=== PATIENT | male | born 1985 | race Caucasian/White ===

== ENCOUNTER 2020-09-24 09:58 | Day surgery (SDC) | payer BC ==
[2020-09-23 11:32] VITALS: BMI 34.4
[2020-09-24] MEDS ORDERED: Fentanyl 250 MCG/5 ML VIAL ONE (11:06)
[2020-09-24] MEDS ORDERED: Thrombin 5000 UNITS/5 ML VIAL ONE (11:36)
[2020-09-24] MEDS ORDERED: Midazolam HCl 2 mg/2 ml Vial ONE (11:39)
[2020-09-24] MEDS ORDERED: Dexamethasone 20 MG/5 ML VIAL ONE (12:40)
[2020-09-24] MEDS ORDERED: PHENYLEPHRINE-NS 100 MCG/ML 10 ML SYRINGE ONE (12:40)
[2020-09-24] MEDS ORDERED: Rocuronium Bromide 10 MG/ML (10ML VIAL) ONE (12:40)
[2020-09-24] MEDS ORDERED: Lidocaine 1% PF 5 ML VIAL ONE (12:40)
[2020-09-24] MEDS ORDERED: PROPOFOL 200 MG/20 ML VIAL ONE (12:40)
[2020-09-24] MEDS ORDERED: Ondansetron PF 4 MG/2 ML Vial ONE (12:40)
[2020-09-24] MEDS ORDERED: traMADol HCl 50 MG TAB PO PRN (13:06)
[2020-09-24] MEDS ORDERED: Milk Of Magnesia 30 ML UDCUP PO PRN (13:06)
[2020-09-24] MEDS ORDERED: Bisacodyl 10 MG SUPP PR PRN (13:06)
[2020-09-24] MEDS ORDERED: Morphine 2 MG/ML VIAL SLOW IVP PRN (13:06)
[2020-09-24] MEDS ORDERED: Mag-Al 1200 mg/1200 mg/30 ML UDCUP PO PRN (13:06)
[2020-09-24] MEDS ORDERED: Acetaminophen 325 MG TAB PO PRN (13:06)
[2020-09-24] MEDS ORDERED: tiZANidine HCl 4 MG TAB PO PRN (13:06)
[2020-09-24] MEDS ORDERED: Ondansetron PF 4 MG/2 ML Vial IVP PRN (13:06)
[2020-09-24] MEDS ORDERED: Acetaminophen/Codeine 30-300mg Tablet PO PRN (13:06)
[2020-09-24] MEDS ORDERED: SUGAMMADEX SODIUM 200 MG/2 ML VIAL ONE (13:54)
[2020-09-24] MEDS ORDERED: HYDROmorphone 2 MG/ML VIAL ONE (14:09)
[2020-09-24] MEDS ORDERED: Ondansetron HCl/PF 4 MG/2 ML Vial IVP PRN (14:41)
[2020-09-24] MEDS ORDERED: HYDROmorphone 2 MG/ML VIAL SLOW IVP PRN (14:41)
[2020-09-24] MEDS ORDERED: Promethazine HCl 25 MG/ML VIAL SLOW IVP PRN (14:41)
[2020-09-24] MEDS ORDERED: Promethazine HCl 25 MG/ML VIAL IM PRN (14:41)
[2020-09-24] MEDS ORDERED: Fentanyl 100 MCG/2 ML VIAL ONE ×2 (14:54→15:11)
[2020-09-24] MEDS ORDERED: Morphine 4 MG/ML VIAL ONE (16:06)
[2020-09-24] MEDS: Sodium Chloride 0.9% 1,000 ML IV SCH (17:46)
[2020-09-24] MEDS: HYDROcodone/Acetaminophen 7.5/325 mg Tablet PO PRN (17:54)
[2020-09-24] MEDS: CEFAZOLIN 2 GM in Premix Bag 1 BAG IVPB SCH (17:59)
[2020-09-24] MEDS: Gabapentin 400 MG CAP PO SCH (21:00)
[2020-09-25] MEDS: HYDROcodone/Acetaminophen 7.5/325 mg Tablet PO PRN ×2 (01:11→08:25)
[2020-09-25] MEDS: CEFAZOLIN 2 GM in Premix Bag 1 BAG IVPB SCH (03:33)
[2020-09-25] MEDS: Sodium Chloride 0.9% 1,000 ML IV SCH (03:34)
[2020-09-25] MEDS: Gabapentin 400 MG CAP PO SCH (08:27)
--- NOTE | 2020-09-25 09:52 | PRG ---
DATE OF SERVICE: Mr. Moon is postoperative day 1 from left L5-S1 hemilaminotomy, foraminotomy, and diskectomy with also left L5-S1 trans-facet diskectomy. He is doing well with resolution in his low back and left leg pain. He states that the paresthesias in his left foot have also improved. He is very pleased with his outcome. He has met criteria for discharge and is neurologically intact. We went over do's and don'ts in the postoperative period and we will plan for discharge. Job ID: [id number]
--- NOTE | 2020-09-25 10:09 | OP ---
DATE OF PROCEDURE: 09/24/2020 PRINT PRODUCTION MANAGER: Ursula Schreiber PA-C PREPROCEDURE DIAGNOSIS: Left L5-S1 paracentral and lateral disk extrusion with compression of traversing and exiting left S1 and left L5 nerve roots respectively. POSTPROCEDURE DIAGNOSIS: Left L5-S1 paracentral and lateral disk extrusion with compression of traversing and exiting left S1 and left L5 nerve roots respectively. PROCEDURES PERFORMED: 1. Left L5-S1 hemilaminotomy, foraminotomy, and diskectomy. 2. Left L5-S1 trans-facet diskectomy for decompression of the exiting left L5 nerve root. 3. Use of operative microscope for microdissection. DESCRIPTION OF PROCEDURE: After informed consent was obtained from the patient, the patient was brought to the OR. Proper patient, pause, and identification were carried out. He was placed under excellent general endotracheal anesthesia and positioned prone on the OR table. All appropriate points were padded. We identified the midline lumbar salma to allow for approach to the L5-S1 segment. This region was sterilely cleansed, prepared, and draped. Proper patient, pause, and identification were carried out. The wound was then opened with a combination of sharp, monopolar, and blunt dissection, proceeded to expose the left L5-S1 hemilamina and facet complex. The microscope was brought in following localization, we then performed a left L5-S1 hemilaminotomy, foraminotomy, and diskectomy with the microscope, removing the paracentral disk to decompress the traversing left S1 nerve roots. We then performed the trans-facet diskectomy to expose and skeletonize exiting left L5 nerve root, and removed disk material in the left L5 neural foramen. Copious irrigation occurred throughout as did maximizing hemostasis. The wound was then closed in anatomic layers following sprinkling of vancomycin powder. The patient emerged from anesthesia. Job ID: [id number]
[2020-09-25 11:29] VITALS: BP 114/64; TEMP 98.5
== END 2020-09-25 11:42 | disposition home or self-care (01) ==
LOC: SDC 09:58 → 3SE 13:06 → SDC 09-25 11:42
PROVIDERS: ATTEND Surgery
PROC: 0SB20ZZ Excision of Lumbar Vertebral Disc, Open Approach (ICD-10-PCS; principal; 2020-09-24)
DX: M51.16 Intervertebral disc disorders with radiculopathy, lumbar region (principal); I10 Essential (primary) hypertension; Z79.899 Other long term (current) drug therapy
CPT/HCPCS: 76000; J0690; J1100; J1170; J2250; J2270; J2405; J2704; J3010; J3370; J3490

== ENCOUNTER 2021-07-30 12:53 | Outpatient (CLI) | payer BC | END 2021-07-30 12:54 | disposition home or self-care (01) | LOC: TBSIIMAG 12:53 | PROVIDERS: ATTEND Surgery | DX: M54.16 Radiculopathy, lumbar region (principal); M48.07 Spinal stenosis, lumbosacral region; M48.061 Spinal stenosis, lumbar region without neurogenic claudication | CPT/HCPCS: 72148 ==